=== PATIENT | male | born 1990 | race Two or more races ===

== ENCOUNTER 2016-09-21 19:30 | Emergency (ER) | payer OTHER ==
[2016-09-21] MEDS ORDERED: KETOROLAC TROMETHAMINE 30 MG/ML 1 ML VIAL ONE (21:06)
[2016-09-21 21:29] LABS: ABSOLUTE NEUTROPHIL COUNT 6.7 K/mm3 (1.8-7.7); BASO % 0.4 % (0.2-1.0); EOS # 0.1 (0.0-0.5); HEMATOCRIT 46.9 % (32.0-52.0); HEMOGLOBIN 16.6 gm/l (14.0-18.0); IMM NEUT% 0.3 % (0-1); LYMPH # 2.5 (1.0-4.8); LYMPH % 24.8 % (15-45); MEAN CELL VOLUME 91.1 fl (80.0-94.0); MEAN CORPUSCULAR HEMOGLOBIN 32.2 pg (27.0-31.0); MEAN CORPUSCULAR HGB CONC 35.4 g/dl (33.0-37.0); MEAN PLATELET VOLUME 9.3 fl (7.4-10.4); MONO # 0.6 (0.0-0.8); MONO % 5.6 % (4-12); NEUT % 67.9 % (43-75); PLATELET COUNT 327 K/mm3 (130-400); RED CELL DISTRIBUTION WIDTH 11.9 % (11.5-14.5)
[2016-09-21 21:43] LABS: ALB/GLOB RATIO 1.3 (>1.0); ALBUMIN 4.9 gm/dL (3.5-5.7); CALCIUM 10.1 mg/dL (8.6-10.3)
--- NOTE | 2016-09-22 09:28 | US ---
ABDOMINAL-LIMITED: 09/21/2016 8:57 PM CLINICAL HISTORY: Postprandial pain with low back pain for one week. History of H. pylori.. STUDY: Limited right upper quadrant ultrasound COMPARISON: none FINDINGS: Gallbladder: Wall thickness: Normal Cholelithiasis: none Pericholecystic Fluid: none Sonographic Crane's Sign: negative Bile ducts: Common bile duct measures 3 to 4 mm. Limited visualized Liver and RUQ structures: normal IMPRESSION: Unremarkable examination. Nuclear medicine scintigraphy or ERCP could be helpful in further assessment as clinically warranted . Preliminary report was provided by [facility] at approximately 2247 hours on 09/21/2016.
== END 2016-09-21 23:16 | disposition home or self-care (01) ==
LOC: ED 19:30
DX: R10.9 Unspecified abdominal pain (principal); F17.210 Nicotine dependence, cigarettes, uncomplicated
CPT/HCPCS: 83690; 82150; 85025; 80053; 76705; 99283 ×2; 96374; J1885

== ENCOUNTER 2016-10-10 09:41 | Day surgery (SDC) | payer OTHER ==
[~2016-10-10 09:41] MED LIST: LACTATED RINGERS 1,000 ML IV SCH
[2016-10-10] MEDS ORDERED: IV START KIT ONE (10:10)
[2016-10-10] MEDS ORDERED: LACTATED RINGERS 1,000 ML ONE (10:11)
[2016-10-10] MEDS ORDERED: LIDOCAINE Viscous 2% 15 ML UDCUP ONE (11:11)
[2016-10-10] MEDS ORDERED: PROPOFOL 20 ML IV ONE (11:12)
[2016-10-10 15:50] LABS: HELICOBACTER PYLORII DETECTION NEGATIVE (NEGATIVE)
--- NOTE | 2016-10-14 13:14 | SURGPATH ---
[facility] [address] [place] [id number] Patient Name: RAJEEV GRIFFIN MR#: [id number] : 1990 Gender: M Specimen #: [id number] Collected: 10/10/2016 Received: 10/12/2016 Reported: 10/14/2016 Submitting Phys: ELSI ARAYA Copy To Phys: [facility] LOLLY PALACIOS Clinical History / Pre-Operative Diagnosis: RUQ pain; epigastric pain; nausea; rule out Giardia, celiac sprue and gastritis Specimen Source / Surgical Procedure Performed: #1-duodenal biopsy; #2-antral biopsy Interpretation: 1. DUODENAL BIOPSY: - MILD ACTIVE DUODENITIS. 2. ANTRAL BIOPSY: - MILD CHRONIC ANTRAL GASTRITIS. - IMMUNOHISTOCHEMICAL STAINING FOR HELICOBACTER NEGATIVE. Electronically Signed Out Araceli Pool M.D. Gross Description: #1 The specimen is received in a formalin filled container labeled with the patient's name and "duodenal biopsy". Three blair biopsies are 0.2, 0.3 and 0.4 cm. Totally embedded in cassette #1. #2 The specimen is received in a formalin filled container labeled with the patient's name and "antral biopsy". A single blair biopsy is 0.5 cm. Totally embedded in cassette #2. Osvaldo Reeves Microscopic Description: 1. Sections of the duodenal biopsy show an increased lymphoplasmacytic infiltrate of the lamina propria with occasional intermixed neutrophils. Intraepithelial lymphocytes are not increased. No parasitic organisms are seen. There is no evidence of neoplasm. 2. Sections of the antral biopsy show mildly increased chronic inflammation of the lamina propria. There is no evidence of intestinal metaplasia or mucosal atrophy. No Helicobacter organisms are appreciated on the routinely stained sections. Immunohistochemical staining for Helicobacter is negative. The control material stains appropriately. (Analyte-specific reagents (ASR) are used in many laboratory tests necessary for standard medical care and generally do not require FDA approval. This test was developed and its performance characteristics determined by [facility]. It has not been cleared or approved by the U.S. Food and Drug Administration. [facility] [employer] [facility] is certified under the Clinical Laboratory Improvement Amendments of 1988 as qualified to perform high complexity clinical laboratory testing. All controls stain as expected.) 1: 79196 2: 43408, 95995 K29.80 K29.50
== END 2016-10-10 12:19 | disposition home or self-care (01) ==
LOC: SDC 09:41
PROVIDERS: ATTEND Internal Medicine Gastroenterology
PROC: 0DB98ZX Excision of Duodenum, Via Natural or Artificial Opening Endoscopic, Diagnostic (ICD-10-PCS; principal; 2016-10-10)
PROC: 0DB68ZX Excision of Stomach, Via Natural or Artificial Opening Endoscopic, Diagnostic (ICD-10-PCS; 2016-10-10)
PROC: 0DB48ZX Excision of Esophagogastric Junction, Via Natural or Artificial Opening Endoscopic, Diagnostic (ICD-10-PCS; 2016-10-10)
DX: K21.0 Gastro-esophageal reflux disease with esophagitis (principal); K29.70 Gastritis, unspecified, without bleeding; K29.80 Duodenitis without bleeding; Z86.19 Personal history of other infectious and parasitic diseases
CPT/HCPCS: 43239; 87081; A9270; J7120